=== PATIENT | male | born 1955 | race Caucasian/White ===

== ENCOUNTER → 2021-08-30 | Outpatient (CLI) | payer OTHER, MEDICARE ==
[~2021-08-30] MED LIST: ACCUNEB SO1.25 MG/1 INH; ADVAIR 100-501 EACH INH; COLLAGEN 15001 EACH PO; DAILY VITE1 EAC1 PO; FISH OIL 1,0001 EAC9 PO; VITAMIN C500 M3 PO; VITAMIN D3250 MC1 PO
--- NOTE | 2021-08-30 09:07 | EKG ---
[address] [place] [address] ELECTROCARDIOGRAM REPORT Name: IVETTE MCKOY Room #: [facility] BELINDA Booker#: [id number] Admission: 08/30/21 Attend Phys: Cristiane Mcintosh DO Discharge: Date of : 57 Report #: [id number] [facility] Test Date: 2021-08-30 Test Time: 08:54:33 Pat Name: IVETTE MCKOY Department: Room: Gender: M Edge Brusher: OLIVA MARTINEZ : 1955 Requested By: Alfonso Oliveira Order Number: [id number] MD: Dinh Goodwni Measurements Intervals Alpine Rate: 66 P: 66 WI: 152 QRS: 39 QRSD: 93 T: 56 QT: 415 QTc: 435 Interpretive Statements Sinus rhythm Normal tracing No previous ECG available for comparison Electronically Signed On 08-30-2021 9:07:06 [employer] by Dinh Goodwin [email or web address] <ELECTRONICALLY SIGNED> By: Dinh Goodwin MD, [facility] 08/30/21 [phone] Dinh Goodwin MD, FACC /EPI
[2021-08-30 09:09] LABS: HEMATOCRIT 46.8 % (42.0-52.0); HEMOGLOBIN 15.7 gm/dL (14.0-18.0); MCHC 33.4 g/dL (28.0-37.0); MCV 95.6 fL (80.0-100.0); RBC 4.9 mil/uL (4.50-6.00); RDW 12.6 % (10.5-14.5); URINE BILIRUBIN NEGATIVE (Negative); URINE BLOOD NEGATIVE (Negative); URINE CLARITY CLEAR; URINE COLOR YELLOW; URINE GLUCOSE-RANDOM* NEGATIVE (Negative); URINE KETONES NEGATIVE (Negative); URINE LEUKOCYTES-REFLEX NEGATIVE (Negative); URINE NITRITE-REFLEX NEGATIVE (Negative); URINE PROTEIN (DIPSTICK) NEGATIVE (Negative); URINE SPECIFIC GRAVITY >= 1.030 (1.005-1.035); URINE UROBILINOGEN 0.2 E.U./dl (0.2-1.0); WBC 7.1 thou/uL (4.0-11.0)
[2021-08-30 09:17] LABS: CALCIUM 9.7 mg/dL (8.5-10.1); CREATININE 1.2 mg/dL (0.7-1.3); POTASSIUM 4.4 mmol/L (3.5-5.1)
[2021-08-30 09:23] LABS: INR 0.97; PROTIME 10.6 Seconds (10.5-12.1)
== END ==
LOC: PAC 08:19
PROVIDERS: Orthopaedic Surgery; ATTEND Student in an Organized Health Care Education/Training Program
DX: M17.11 Unilateral primary osteoarthritis, right knee (principal)

== ENCOUNTER → 2021-09-10 | Outpatient (CLI) | payer OTHER, MEDICARE | LOC: LAB 08:07 | PROVIDERS: Orthopaedic Surgery; ATTEND Student in an Organized Health Care Education/Training Program | DX: Z01.812 Encounter for preprocedural laboratory examination (principal); Z20.822 Contact with and (suspected) exposure to COVID-19 ==

== ENCOUNTER 2021-09-11 06:08 | Observation (INO) | payer OTHER, MEDICARE ==
[~2021-09-11] VITALS: Ht 180.3 cm; Wt 102.1 kg
--- NOTE | ~2021-09-11 | O ---
[facility] [place] [address] OPERATIVE REPORT Name: IVETTE MCKOY Room #: [facility].#: [id number] Admission: 09/11/21 Attend Phys: Alfonso Oliveira MD Discharge: Date of : 57 Report #: [id number] THIS REPORT FOR: cc: Robert Narvaez MD, Vinod N. MD Abraham,Alfonso Castro MD ~ DATE OF SERVICE: 09/11/2021 PREOPERATIVE DIAGNOSIS: Right knee osteoarthritis. POSTOPERATIVE DIAGNOSIS: Right knee osteoarthritis. PROCEDURE: Right total knee arthroplasty using CORI robotic assistance. SURGEON: Alfonso Oliveira MD PHERESIS SPECIALIST: Aimee Crenshaw PA-C. INDICATION FOR PHERESIS SPECIALIST: Throughout the case, extensive retraction, manipulation of the knee was required. This was afforded to me by my tiler's assistant. ANESTHESIA: LMA with adductor canal block. IMPLANTS: A [employer] size 6 Journey II BCS Oxinium femur, size 6 tibia, size 35 patella and a size 10 polyethylene. TOURNIQUET TIME: 50 minutes. COMPLICATIONS: None. SPECIMENS: None. CONDITION UPON LEAVING THE OR: Stable. INDICATIONS FOR PROCEDURE: The patient is a 66-year-old gentleman with severe right knee osteoarthritis. He had failed conservative measures for this and after discussion with him, he elected for right total knee arthroplasty. DESCRIPTION OF PROCEDURE: Risks, benefits, alternatives and complications were discussed in detail with the patient including but not limited to risk of anesthesia, risk of damage to nerves, arteries, blood vessels, risk for infection, bleeding, risk for continued knee pain, need for reoperation. Informed consent was obtained from the patient. The right knee was appropriately marked in the preoperative holding area. IV Ancef was given for preoperative antibiotics. He was brought to the operating room and placed in supine position on the operating room table. LMA anesthesia was induced without [facility] [address] [place] [address] OPERATIVE REPORT Name: IVETTE MCKOY Room #: [facility].#: [id number] Admission: 09/11/21 Attend Phys: Alfonso Oliveira MD Discharge: Date of : 57 Report #: [id number] complication. Tourniquet was placed on the right thigh. Right lower extremity was prepped and draped in normal sterile fashion. Timeout was performed properly identifying the patient and procedure as well as the instrumentation and implants with all in the operating room in agreement. Right lower extremity was exsanguinated, tourniquet was inflated, tourniquet time was 50 minutes. Standard midline approach to the knee was made with 10 blade through the skin. Dissection was taken down sharply to the fascia and deep flaps were developed medially and laterally. Fresh 10 blade was used to make a medial parapatellar arthrotomy and the knee was inspected. There was severe medial compartment osteoarthritis with moderate patellofemoral and lateral compartment osteoarthritis. ACL and PCL were removed sharply. Reference pins were placed in the femur and the tibia. The knee was then digitally mapped using the [employer] robotic system. Intraoperative plan was made. We sized the size 6 femur, the size 6 tibia and a 10 spacer. After acceptance of the intraoperative plan, the distal femoral cut was made with the CORI bur. Distal femoral cutting block was pinned in place and chamfer cuts were made. Attention was turned to the tibia. Remainder of the menisci removed with Bovie cautery. Tibial resection guide was pinned in place using the CORI for placement and tibial resection was made. Flexion and extension gaps were checked and found to have good balance in flexion and extension both medially and laterally. Tibia sized, found to be a size 6. A size 6 tibial trial was placed, pinned and punched. A size 6 femoral trial was placed and box cut was made. This was then trialed with a size 10 polyethylene. Size 10 polyethylene demonstrated 1-2 mm of laxity medially and laterally throughout range of motion of the knee. A 5 mm of bone was resected from the posterior surface of the patella and a size 35 patellar trial button was placed. Knee was taken through range of motion, found to be stable, found to have good patellar tracking. Trial components were removed. Bone ends were thoroughly irrigated with normal saline. A final size 6 tibia, size 6 Journey II BCS Oxinium femur and a size 35 patella were cemented in place using standard cementation techniques. While the cement cured, a periarticular injection consisting of morphine, ropivacaine, epinephrine, Toradol was placed around the knee joint capsule. After the cement cured, the tourniquet was deflated. Hemostasis was obtained with Bovie cautery. Final size 10 polyethylene was placed. A gram of vancomycin was placed deep in the joint. The fascia was closed with 0 Vicryl. Skin was closed with 2-0 Vicryl, 3-0 Monocryl. Dermabond and a SAIRA dressing was applied. The patient tolerated this procedure well and went to recovery room under care of anesthesia postoperatively. By: [id number] Alfonso Oliveira MD /aleksandr
[2021-09-11 06:51] VITALS: BP 132/91
[2021-09-11 13:19] VITALS: BP 129/82
--- NOTE | 2021-09-11 13:35 | NUR ---
ASSUMED PT CARE AT 1300 FROM PACU. PT HAD RIGHT TOTAL KNEE REPLACEMENT TODAY. PT IS ALERT & ORIENTED X4. PT HAS IV SITE ON R WRIST 20 GAUGE SALINE LOCKED. PT IS ON ROOM AIR. PT HAS BILATERAL [employer] KNEE HIGH, SAIRA DRESSING, POLAR PACK. FINISHED ADMISSION. PT AT THE BEDSIDE. PHYSICAL THERAPY WILL BE WORKING WITH PT TODAY. WILL CONTINUE TO MONITOR PT. FOLLOW POC.
[2021-09-11 15:00] VITALS: BP 129/82
== END 2021-09-11 16:27 | disposition home or self-care (01) ==
LOC: OR → 4S 12:53 → OR 13:11 → 4S 16:25
PROVIDERS: ADMIT Orthopaedic Surgery; ATTEND Orthopaedic Surgery
DX: M17.11 Unilateral primary osteoarthritis, right knee (principal); Z20.822 Contact with and (suspected) exposure to COVID-19; Z79.899 Other long term (current) drug therapy
CPT/HCPCS: 50010; 50101; 50415; 50954; 51130; 51225; 53000; 53078; 53365; 54118; 56527; 56528; 57095; 57103; 57110; 57180; 59024; 59140; 59141; 62110; 62900; 64043; 65060; 70005